=== PATIENT | female | born 1930 | race Caucasian/White ===

== ENCOUNTER 2016-10-16 10:16 | Day surgery (SDC) | payer MEDICARE, OTHER ==
[2016-10-11 10:07] LABS: HEMATOCRIT 44.2 % (36.0-47.0); HEMOGLOBIN 14.4 g/dL (12.0-15.5); MEAN CORPUSCULAR HEMOGLOBIN 28.2 pg (27.0-33.4); MEAN CORPUSCULAR HGB CONC 32.6 g/dL (32.0-36.0); MEAN CORPUSCULAR VOLUME 87 fl (80-97); RED BLOOD COUNT 5.12 10^6/uL (3.72-5.28); RED CELL DISTRIBUTION WIDTH 14.1 % (11.5-14.0); WHITE BLOOD COUNT 5.1 10^3/uL (4.0-10.5)
[2016-10-11 10:11] LABS: PROTHROMBIN TIME 12.4 SEC (11.4-15.4)
[2016-10-11 10:12] LABS: PARTIAL THROMBOPLASTIN TIME 29.5 SEC (23.5-35.8)
--- NOTE | 2016-10-12 06:04 | EKG REPORT ---
SEVERITY:- OTHERWISE NORMAL ECG - SINUS RHYTHM BORDERLINE RIGHT AXIS DEVIATION : Confirmed by: Kristina Ferreira MD 12-Oct-2016 06:03:39
[~2016-10-16 10:16] MED LIST: CEFAZOLIN 1 GM/D5W RTU 1 GM/50 ML RTUPB IV PRN; LACTATED RINGERS 1000 ML IV PRN; LIDOCAINE 0.5% INJ-PF (5 MG/ML) 50 ML SDV SUBCUT PRN; ONDANSETRON HCL INJ/PF 4 MG/2 ML SDV ONE; PHENYLEPHRINE HCL INJ/PF 10 MG/1 ML SDV ONE
[2016-10-16] MEDS ORDERED: SODIUM BICARBONATE 8.4% INJ 50 MEQ/50 ML DISP.SYRIN ONE (11:12)
[2016-10-16] MEDS ORDERED: LIDOCAINE 0.5%/EPINEPHRINE INJ 50 ML VIAL ONE (13:14)
[2016-10-16] MEDS ORDERED: POVIDONE-IODINE 5% OPH PREP SOLN 30 ML ONE (13:26)
[2016-10-16] MEDS ORDERED: FENTANYL CITRATE INJ/PF 100 MCG/2 ML AMPUL IV PRN ×2 (15:14)
[2016-10-16] MEDS ORDERED: DIPHENHYDRAMINE HCL 50 MG/ML VIAL IV PRN (15:14)
--- NOTE | 2016-10-16 15:59 | Operative Report ---
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 Patient was brought into the operating room and placed on the operating room table in a supine position. Patient was then prepped with a Betadine scrub and Betadine solution and draped in a sterile and aseptic manner. The area was then marked. 12 O'clock was marked towards the glabella 3 O'clock was marked towards left side of nose 6:00 was marked towards the tip of the nose 9:00 was marked towards the right side of the nose The area was then anesthetized with half percent lidocaine with epinephrine and bicarbonate for its anesthetic and hemostatic effects. The area was then excised and marked at 12:00. We had considered a primary closure but this would go against the natural relaxed skin tension lines. A primary closure would be too tight and would have increased chance of dehiscence. This will leave more of a scar so we decided to use a dorsal nasal advancement flap reconstruction which would camouflage the scar better and take tension off of the closure so that would be less chances of complications. Then went ahead and outlined the flap and anesthetized it. Then incised the flap and developed a flap maintaining the subdermal plexus. Then we undermined 360 to allow for plate like scarring and minimize trap door deformity. Throughout the case hemostasis was achieved with the bipolar. We then sutured the flap into its new position Using 5-0 Vicryl for the subcutaneous and deep dermis. Skin was closed with a interrupted sutures using 6-0 Prolene with knots being tied on the outside. We then applied tincture benzoin and Steri-Strips followed by a light pressure dressing. Patient was then reversed from anesthesia and taken to the [facility] for recovery. The patient tolerated well. There were no complications. Lesion size was approximately 1.1 cm x 1 cm please see pathology for actual size. Portions of this note may be dictated using [email or web address] voice recognition software. Occasional variations and spelling and vocabulary could be possible and are unintentional. Additionally, there is a chance that some errors may not be caught or corrected. Please notify the offer of any discrepancies noted or if any statements are unclear. Subjective: No complaints Objective: Vital signs stable afebrile No bleeding Dressing intact Assessment and plan: Doing well. Elevate the operative site. Resume medications. Take antibiotics for 1 day Follow-up Full instructions were given to the patient and family and they understand Portions of this note may be dictated using [email or web address] voice recognition software. Occasional variations and spelling and vocabulary could be possible and are unintentional. Additionally, there is a chance that some errors may not be caught or corrected. Please notify the offer of any discrepancies noted or if any statements are unclear.
--- NOTE | 2016-10-16 16:01 | PDOC DISCHARGE SUMMARY ---
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
[2016-10-16] MEDS ORDERED: PROPOFOL INJ 200 MG/20 ML VIAL IV ONE (16:15)
[2016-10-16 17:36] VITALS: BP 142/79
== END 2016-10-16 17:30 | disposition home or self-care (01) ==
LOC: OROUT 10:16
PROVIDERS: ATTEND Plastic Surgery
PROC: 0HB1XZZ Excision of Face Skin, External Approach (ICD-10-PCS; 2016-10-16)
PROC: 0HX1XZZ Transfer Face Skin, External Approach (ICD-10-PCS; principal; 2016-10-16 12:30)
DX: C44.321 Squamous cell carcinoma of skin of nose (principal); C44.311 Basal cell carcinoma of skin of nose; I10 Essential (primary) hypertension; M19.90 Unspecified osteoarthritis, unspecified site; I25.10 Atherosclerotic heart disease of native coronary artery without angina pectoris; I48.91 Unspecified atrial fibrillation; Z79.01 Long term (current) use of anticoagulants; Z79.82 Long term (current) use of aspirin; Z79.899 Other long term (current) drug therapy; Z86.73 Personal history of transient ischemic attack (TIA), and cerebral infarction without residual deficits; I25.2 Old myocardial infarction; Z98.61 Coronary angioplasty status
CPT/HCPCS: 93005; 36415 ×2; 84132; 85027; 85610; 85730; 88305 ×2; 88331 ×2; 93010; 14060; J0690; J3490 ×3; J2370; J2405; J2704; 300

== ENCOUNTER 2017-01-05 09:42 | Emergency (ER) | payer MEDICARE, OTHER ==
[2017-01-05] MEDS ORDERED: MECLIZINE HCL 25 MG TABLET PO ONE ×3 (09:58→13:00)
--- NOTE | 2017-01-05 09:59 | ER Document Report ---
ED Medical Screen (RME) - General Chief Complaint: Dizziness Stated Complaint: DIZZINESS Time Seen by Provider: 01/05/17 09:53 Mode of Arrival: Ambulatory Information source: Patient TRAVEL OUTSIDE OF THE [place] IN LAST 30 DAYS: No - HPI Patient complains to provider of: Dizziness Notes: 01/05/17 09:58 Patient is an 86-year-old female presenting to the emergency room today with the sensation of the room spinning causing her dizziness and nausea, she denies any head injury, no cough, cold or congestion, no sinus pressure or pain, no headache, no chest pain or shortness of breath, no vomiting, no fevers, no history of similar symptoms previously - Related Data Allergies/Adverse Reactions: No Known Allergies Allergy (Verified 01/05/17 09:44) Past Medical History - Past Medical History Cardiac Medical History: Reports: Hx Coronary Artery Disease, Hx Heart Attack - non stemi with x2 stent placements, Hx Hypercholesterolemia, Hx Hypertension Pulmonary Medical History: Denies: Hx Asthma, Hx Bronchitis, Hx COPD, Hx Pneumonia, Hx Tuberculosis Neurological Medical History: Denies: Hx Cerebrovascular Accident, Hx Seizures Renal/ Medical History: Denies: Hx Peritoneal Dialysis Malignancy Medical History: Reports: Hx Breast Cancer Musculoskeltal Medical History: Reports Hx Arthritis - OSTEOARTHRITIS Past Surgical History: Reports: Hx Mastectomy, Hx Orthopedic Surgery - Immunizations Hx Diphtheria, Pertussis, Tetanus Vaccination: Yes Physical Exam - Vital signs Vitals: Temp Pulse Resp BP Pulse Ox 97.7 F 73 16 164/85 H 99 01/05/17 09:45 01/05/17 09:45 01/05/17 09:45 01/05/17 09:45 01/05/17 09:45 Course - Vital Signs Vital signs: Temp Pulse Resp BP Pulse Ox 97.7 F 73 16 164/85 H 99 01/05/17 09:45 01/05/17 09:45 01/05/17 09:45 01/05/17 09:45 01/05/17 09:45
--- NOTE | 2017-01-05 11:03 | EKG REPORT ---
SEVERITY:- OTHERWISE NORMAL ECG - SINUS RHYTHM BORDERLINE RIGHT AXIS DEVIATION : Confirmed by: Nicholas Coleman MD 05-Jan-2017 11:02:19
[2017-01-05 11:09] LABS: ABSOLUTE EOSINOPHILS # (AUTO) 0.1 10^3/uL (0.0-0.6); ABSOLUTE LYMPHOCYTES (AUTO) 0.9 10^3/uL (0.5-4.7); ABSOLUTE MONOCYTES (AUTO) 0.5 10^3/uL (0.1-1.4); ABSOLUTE NEUT (AUTO) 2.7 10^3/uL (1.7-8.2); BASOPHILS % (AUTO) 0.4 % (0-2); EOSINOPHILS % (AUTO) 1.8 % (0-6); HEMATOCRIT 42.5 % (36.0-47.0); HEMOGLOBIN 14.4 g/dL (12.0-15.5); HGB HCT DIFFERENCE 0.7; LYMPHOCYTES % (AUTO) 22.2 % (13-45); MEAN CORPUSCULAR HEMOGLOBIN 28.8 pg (27.0-33.4); MEAN CORPUSCULAR HGB CONC 33.8 g/dL (32.0-36.0); MEAN CORPUSCULAR VOLUME 85 fl (80-97); MONOCYTES % (AUTO) 12.7 % (3-13); RED BLOOD COUNT 4.99 10^6/uL (3.72-5.28); RED CELL DISTRIBUTION WIDTH 13.9 % (11.5-14.0); SEGMENTED NEUTROPHILS % (AUTO) 62.9 % (42-78); WHITE BLOOD COUNT 4.2 10^3/uL (4.0-10.5)
[2017-01-05 11:35] LABS: ALANINE AMINOTRANSFERASE 24 U/L (9-52); ALBUMIN 4.4 g/dL (3.5-5.0); ALKALINE PHOSPHATASE 59 U/L (38-126); ANION GAP 12 (5-19); ASPARTATE AMINO TRANSFERASE 18 U/L (14-36); BILIRUBIN,DIRECT 0.4 mg/dL (0.0-0.4); BLOOD UREA NITROGEN 24 mg/dL (7-20); CALCIUM 10.2 mg/dL (8.4-10.2); CARBON DIOXIDE 28 mmol/L (22-30); CHLORIDE 104 mmol/L (98-107); CREATINE KINASE 32 U/L (30-135); CREATININE RESULT 0.61 mg/dL (0.52-1.25); GLUCOSE 101 mg/dL (75-110); POTASSIUM 3.9 mmol/L (3.6-5.0); SODIUM 143.6 mmol/L (137-145); TOTAL PROTEIN 7.3 g/dL (6.3-8.2)
[2017-01-05 11:44] LABS: APPEARANCE,URINE CLEAR; BILIRUBIN,URINE NEGATIVE (NEGATIVE); GLUCOSE, URINE NEGATIVE (NEGATIVE); KETONES,URINE NEGATIVE (NEGATIVE); LEUKOCYTE ESTERASE,URINE TRACE (NEGATIVE); NITRITE,URINE NEGATIVE (NEGATIVE); PROTEIN,URINE NEGATIVE (NEGATIVE); URINE SPECIFIC GRAVITY 1.006; UROBILINOGEN,URINE NEGATIVE mg/dL (<2.0)
[2017-01-05 11:47] LABS: CREATINE KINASE MB 0.85 ng/mL (<4.55); TROPONIN I < 0.012 ng/mL
--- NOTE | 2017-01-05 12:25 | ER Document Report ---
ED Dizziness/Weakness - General Mode of Arrival: Ambulatory Information source: Patient TRAVEL OUTSIDE OF THE [place] IN LAST 30 DAYS: No <ANGIE NUÑEZ - Last Filed: 01/05/17 12:41> <ROMAINE GAITAN - Last Filed: 01/05/17 14:45> - General Chief Complaint: Dizziness Stated Complaint: DIZZINESS Time Seen by Provider: 01/05/17 09:53 Notes: Patient is an 86-year-old female who presents to the emergency department today with complaints of dizziness. Patient states her dizziness is worse today but it has been going on for the last few days. Patient states until today, her dizziness was elicited with rapid head movement. Patient states today she was dizzy when simply lying in bed. Patient states her dizziness improved with Antivert which she received in triage. (ANGIE NUÑEZ) - Related Data Allergies/Adverse Reactions: No Known Allergies Allergy (Verified 01/05/17 09:44) Home Medications: Current Home Medications Anastrozole 1 mg PO DAILY 01/05/17 [History] Aspirin [Aspirin 325 mg Tablet] 325 mg PO DAILY 01/05/17 [History] Past Medical History - General Information source: Patient - Social History Smoking Status: Never Smoker Cigarette use (# per day): No Chew tobacco use (# tins/day): No Frequency of alcohol use: None Drug Abuse: None Lives with: Family Family History: Reviewed & Not Pertinent, Hypertension - Past Medical History Cardiac Medical History: Reports: Hx Coronary Artery Disease, Hx Heart Attack - non stemi with x2 stent placements, Hx Hypercholesterolemia, Hx Hypertension Malignancy Medical History: Reports: Hx Breast Cancer Musculoskeltal Medical History: Reports Hx Arthritis - OSTEOARTHRITIS Past Surgical History: Reports: Hx Mastectomy, Hx Orthopedic Surgery - Immunizations Hx Diphtheria, Pertussis, Tetanus Vaccination: Yes Hx Pneumococcal Vaccination: 03/25/11 <ANGIE NUÑEZ - Last Filed: 01/05/17 12:41> Review of Systems - Review of Systems Constitutional: No symptoms reported EENT: No symptoms reported Cardiovascular: See HPI, Dizziness Respiratory: No symptoms reported Gastrointestinal: No symptoms reported Genitourinary: No symptoms reported Female Genitourinary: No symptoms reported Musculoskeletal: No symptoms reported Skin: No symptoms reported Hematologic/Lymphatic: No symptoms reported Neurological/Psychological: No symptoms reported -: Yes All other systems reviewed and negative <ANGIE NUÑEZ - Last Filed: 01/05/17 12:41> - Vital signs Vitals: Temp Pulse Resp BP Pulse Ox 97.7 F 73 16 164/85 H 99 01/05/17 09:45 01/05/17 09:45 01/05/17 09:45 01/05/17 09:45 01/05/17 09:45 - Notes Notes: Physical Exam: General: Alert, appears well. HEENT: Normocephalic. Atraumatic. PERRL. Extraocular movements intact. Oropharynx clear. Left sided carotid bruit which family reports is . Neck: Supple. Non-tender. Respiratory: No respiratory distress. Clear and equal breath sounds bilaterally. Cardiovascular: Regular rate and rhythm. Abdominal: Normal Inspection. Non-tender. No distension. Normal Bowel Sounds. Back: Non-tender. No deformity or step off. Extremities: Moves all four extremities. Upper extremities: Normal inspection. Normal ROM. Lower extremities: Normal inspection. No edema. Normal ROM. Neurological: Normal cognition. AAOx4. Normal speech. Psychological: Normal affect. Normal Mood. Skin: Warm. Dry. Normal color. Diffuse cutaneous neurofibromas. (ANGIE NUÑEZ) Course - Laboratory Result Diagrams: 01/05/17 10:45 01/05/17 10:45 <ANGIE NUÑEZ - Last Filed: 01/05/17 12:41> - Laboratory Result Diagrams: 01/05/17 10:45 01/05/17 10:45 <ROMAINE GAITAN - Last Filed: 01/05/17 14:45> - Re-evaluation Re-evalutation: 01/05/17 14:34 At this time after the second dose of Antivert, patient states her symptoms are cleared up. She is able to look up and down and side to side rapidly without any symptoms at this time. (ROMAINE GAITAN) - Vital Signs Vital signs: Temp Pulse Resp BP Pulse Ox 98.1 F 98 16 142/71 H 97 01/05/17 14:01 01/05/17 13:05 01/05/17 14:01 01/05/17 14:01 01/05/17 14:01 - Laboratory Laboratory results interpreted by me: 01/05/17 01/05/17 10:45 11:25 BUN 24 H Urine Blood SMALL H Ur Leukocyte Esterase TRACE H Discharge <ANGIE NUÑEZ - Last Filed: 01/05/17 12:41> <ROMAINE GAITAN - Last Filed: 01/05/17 14:45> - Discharge Clinical Impression: Vertigo Condition: Stable Disposition: HOME, SELF-CARE Additional Instructions: Vertigo: You have experienced an episode of vertigo -- a whirling dizziness which may be accompanied by nausea and vomiting or staggering. Vertigo is often caused by an irritation of the inner ear, in which case it is called labyrinthitis. It can also be a symptom of a degenerating inner ear, nerve damage, or brain injury. Your physician has evaluated you to determine whether any further testing is necessary. Vertigo is often treated with dramamine or meclizine. These medications are helpful, but stronger medication may be needed if you are vomiting. Rest in bed. You should not drive or operate machinery until completely better. It may take one to three weeks for recovery. If there are new symptoms, such as decreased hearing or vision, severe headache, weakness or faintness, or confusion, call the physician. //////////////////////////////////////////////////////////////////////////////// ///////////////////// Take medications as prescribed for the vertigo symptoms. Take fall precautions. Follow-up with your doctor if not improving. RETURN TO THE EMERGENCY ROOM IF ANY NEW OR WORSENING SYMPTOMS. Prescriptions: Meclizine HCl [Antivert 25 mg Tablet] 25 mg PO TID PRN #30 tablet PRN Reason: Referrals: DANIELLE MCHUGH MD [Primary Care Provider] - Follow up as needed Anshulibe Attestation: 01/05/17 14:43 I personally performed the services described in the documentation, reviewed and edited the documentation which was dictated to the scribe in my presence, and it accurately records my words and actions. (ROMAINE GAITAN) Scribe Documentation - Scribe Written by Anshulibe:: Shawna Kelly, 01/05/2017 1247 acting as scribe for :: Oxana <ANGIE NUÑEZ - Last Filed: 01/05/17 12:41>
[2017-01-05 14:37] VITALS: BP 142/71
== END 2017-01-05 14:50 | disposition home or self-care (01) ==
LOC: ER 09:42
DX: R42 Dizziness and giddiness (principal); I25.10 Atherosclerotic heart disease of native coronary artery without angina pectoris; I25.2 Old myocardial infarction; I10 Essential (primary) hypertension; Q85.00 Neurofibromatosis, unspecified; Z95.5 Presence of coronary angioplasty implant and graft; Z85.3 Personal history of malignant neoplasm of breast
CPT/HCPCS: 93005; 99284; 36415; 82553; 82550; 85025; 80053; 81001; 84484; 93010; A9270

== ENCOUNTER → 2017-02-21 | Outpatient (CLI) | payer MEDICARE, OTHER ==
--- NOTE | 2017-02-21 11:29 | RADIOLOGY REPORT (SQ) ---
EXAM DESCRIPTION: CT ABD/PELVIS WITH IV ORAL COMPLETED DATE/TIME: 02/21/2017 9:03 am REASON FOR STUDY: EPIGASTRIC ABDOMINAL PAIN R10.13 EPIGASTRIC PAIN Q85.00 NEUROFIBROMATOSIS, UNSPE CIFIED COMPARISON: None. TECHNIQUE: CT scan of the abdomen and pelvis performed using helical scanning technique with dynamic intravenous contrast injection. Patient drank oral contrast. Images reviewed with lung, soft tissue , and bone windows. Reconstructed coronal and sagittal MPR images reviewed. Delayed images for evalua tion of the urinary system also acquired. All images stored on PACS. All CT scanners at this facility use dose modulation, iterative reconstruction, and/or weight based d osing when appropriate to reduce radiation dose to as low as reasonably achievable (ALARA). [facility]: Dose Right [facility]: CareDose [facility]: Dose Right [facility]: Teradose 4D [facility]: [email or web address] CONTRAST TYPE AND DOSE: contrast/concentration: Isovue 370.00 mg/ml; Total Contrast Delivered: 52.0 ml; Total Saline Delivered: 65.0 ml RENAL FUNCTION: Creatinine 0.7 RADIATION DOSE: CT Rad equipment meets quality standard of care and radiation dose reduction techniq ues were employed. CTDIvol: 2.6 - 3.1 mGy. DLP: 259 mGy-cm.. LIMITATIONS: None. FINDINGS: LOWER CHEST: Unremarkable LIVER: 8 mm cyst left lobe liver axial image 20. No masses. Normal portal vein and splenic vein enh ancement. No biliary ductal dilatation. No hepatomegaly. SPLEEN: Normal size. No focal lesions. 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 PANCREAS: No masses. No significant calcifications. No adjacent inflammation or peripancreatic fluid collections. Pancreatic duct not dilated. GALLBLADDER: Gallstones. No inflammatory changes to suggest cholecystitis. ADRENAL GLANDS: No significant masses or asymmetry. RIGHT KIDNEY AND URETER: No solid masses. No significant calcifications. No hydronephrosis or hyd roureter. LEFT KIDNEY AND URETER: No solid masses. No significant calcifications. No hydronephrosis or hydr oureter. AORTA AND VESSELS: No aneurysm. No dissection. Diffuse heavy atherosclerotic arterial vascular calci fications. Moderate stenosis bilateral common iliac artery, with right common iliac artery stent. . RETROPERITONEUM: No retroperitoneal adenopathy, hemorrhage or masses. BOWEL AND PERITONEAL CAVITY: Patient drank oral contrast. No CT evidence of bowel obstruction. No C T findings worrisome for diverticulitis. No free intraperitoneal air or fluid. APPENDIX: Post appendectomy PELVIS: No mass. No free fluid. Normal bladder. Post hysterectomy. ABDOMINAL WALL: No masses. No hernias. Multiple cutaneous nodules, question neurofibromatosis BONES: Old healed left intertrochanteric fracture with hardware. OTHER: No other significant finding. IMPRESSION: No CT evidence of bowel obstruction, urinary stones, urinary outflow obstruction. Calcified gallstones without CT signs of acute cholecystitis. TECHNICAL DOCUMENTATION: JOB ID: [id number] Quality ID # [id number]: Final reports with documentation of one or more dose reduction techniques (e.g., Au tomated exposure control, adjustment of the mA and/or kV according to patient size, use of iterative reconstruction technique) 2010 [employer]- All Rights Reserved
== END ==
LOC: RAD 08:20
PROVIDERS: ATTEND Family Medicine
DX: R10.13 Epigastric pain (principal)
CPT/HCPCS: 74177

== ENCOUNTER → 2017-09-10 | Outpatient (CLI) | payer MEDICARE, OTHER ==
--- NOTE | 2017-09-10 15:08 | RADIOLOGY REPORT (SQ) ---
EXAM DESCRIPTION: CAROTID DOPPLER COMPLETED DATE/TIME: 09/10/2017 1:14 pm REASON FOR STUDY: SOB R06.02 SHORTNESS OF BREATH R42 DIZZINESS AND GIDDINESS COMPARISON: 07/20/2013 TECHNIQUE: Grayscale ultrasound, Doppler velocity and spectra, and color Doppler images acquired of the extra-cranial carotid and vertebral arteries. Images stored on PACS. LIMITATIONS: None. FINDINGS: RIGHT CAROTID CCA Velocities: Within normal limits. ICA Velocities Peak systolic 0.70 m/s. End diastolic 0.09 m/s. Proximal ICA/CCA peak systolic ratio 1.22 Moderate plaque involving the bifurcation LEFT CAROTID CCA Velocities: Within normal limits. ICA Velocities Peak systolic 1.25 m/s. End diastolic 0.13 m/s. Proximal ICA/CCA peak systolic ratio 2.39. Plaque involving the bifurcation VERTEBRAL ARTERIES: Antegrade flow. Normal waveforms. SUBCLAVIAN ARTERIES: No finding. OTHER: No other significant finding. IMPRESSION: Extensive plaque involving both carotid bifurcations. Degree of stenosis of the right i nternal carotid artery less than 50%. Degree of stenosis left internal carotid 50 to 69%. Near 50% by extrapolation. COMMENT: Quality ID #[id number]: Velocity criteria are extrapolated from the diameter data as defined by t sandeep Society of Radiologists in Ultrasound Consensus Conference. Radiology 2003: 229; 340-346. TECHNICAL DOCUMENTATION: JOB ID: [id number] [employer]- All Rights Reserved Reading location - IP/workstation name: [email or web address]
--- NOTE | 2017-09-13 19:07 | XCELERA REPORT ---
[address] [address] Transthoracic Echocardiogram Report Name: LOUISE ZHOU Age: 87 yrs Gender: Female : 1930 Patient Status: Outpatient Patient Location: Study Date: 09/10/2017 10:37 AM Height: 62 in Weight: 102 lb BSA: 1.4 m2 Procedure: A two-dimensional transthoracic echocardiogram with color flow and Doppler was performed. The study was technically difficult with many images being suboptimal in quality. Reason For Study: SOB History: Shortness of breath. Ordering Physician: KRISTINA BUSBY Performed By: Jason Strickland Interpretation Summary The left ventricle is normal in size. There is normal left ventricular wall thickness. LV EF is > than 65% Left ventricular systolic function is normal. Doppler measurements suggest impaired left ventricular relaxation, which is associated with grade I/IV or mild diastolic dysfunction The left ventricular wall motion is normal. There is no thrombus. The right ventricle is grossly normal size. The right atrium is normal. The left atrial size is normal. The interatrial septum is intact with no evidence for an atrial septal defect. There is mild mitral annular calcification. There is no evidence of mitral valve prolapse. There is no vegetation seen on the mitral valve. There is no mitral valve stenosis. There is a mild amount of mitral regurgitation There is no aortic valve stenosis There is no LVOT obstruction. There is a trace amount of aortic regurgitation There is no tricuspid stenosis. There is a mild amount of tricuspid regurgitation Early mild pulmonary hypertension.RVSP is 31 to 35 mm of Hg , with RA men of 5 to 10 Pulmonic Valve not visualised. The inferior vena cava appeared normal and decreased > 50% with respiration (RAP 5-10 mmHg) There is no pericardial effusion. MMode/2D Measurements & Calculations RVDd: 2.4 cm LVIDd: 4.6 cm FS: 37.2 % Ao root diam: 3.0 cm IVSd: 0.79 cm LVIDs: 2.9 cm EDV(Teich): 95.9 ml LVPWd: 0.73 cmESV(Teich): 31.4 ml Ao root area: 7.0 cm2 EF(Teich): 67.3 % LA dimension: 2.9 cm LVOT diam: 2.0 cm LVOT area: 3.2 cm2 Doppler Measurements & Calculations MV E max jessie: MV P1/2t max jessie: Ao V2 max: LV V1 max P.9 cm/sec 108.0 cm/sec 84.7 cm/sec 2.2 mmHg MV A max jessie: MV P1/2t: 56.6 msec Ao max PG: LV V1 max: 106.1 cm/sec MVA(P1/2t): 3.9 cm2 2.9 mmHg 73.7 cm/sec MV E/A: 0.81 MV dec slope: BRIANA(V,D): 558.5 cm/sec2 2.8 cm2 MV dec time: 0.24 sec TV V2 max: 253.1 cm/sec TV max P.6 mmHg Left Ventricle The left ventricle is normal in size. There is normal left ventricular wall thickness. LV EF is > than 65%. Left ventricular systolic function is normal. Doppler measurements suggest impaired left ventricular relaxation, which is associated with grade I/IV or mild diastolic dysfunction. The left ventricular wall motion is normal. There is no thrombus. There is no ventricular septal defect visualized. Right Ventricle The right ventricle is grossly normal size. Atria The right atrium is normal. The left atrial size is normal. The interatrial septum is intact with no evidence for an atrial septal defect. Mitral Valve There is mild mitral annular calcification. There is no evidence of mitral valve prolapse. There is no vegetation seen on the mitral valve. There is no mitral valve stenosis. There is a mild amount of mitral regurgitation. Aortic Valve There is no aortic valvular vegetation. There is no aortic valve stenosis. There is no LVOT obstruction. There is a trace amount of aortic regurgitation. Tricuspid Valve There is no tricuspid stenosis. There is a mild amount of tricuspid regurgitation. Early mild pulmonary hypertension.RVSP is 31 to 35 mm of Hg , with RA men of 5 to 10. Pulmonic Valve Pulmonic Valve not visualised. Great Vessels The aortic root is not well visualized but is probably normal size. The inferior vena cava appeared normal and decreased > 50% with respiration (RAP 5-10 mmHg). Effusions There is no pericardial effusion. : KRISTINA BUSBY > Kristina Busby
== END ==
LOC: SP 09:52
PROVIDERS: ATTEND Specialist
DX: R42 Dizziness and giddiness (principal); R06.02 Shortness of breath
CPT/HCPCS: 93306; 93880

== ENCOUNTER 2018-03-04 18:17 | Inpatient (IN) | payer MEDICARE, OTHER ==
--- NOTE | 2018-03-04 19:16 | ER Document Report ---
ED Medical Screen (RME) - General Chief Complaint: Abdominal Pain Stated Complaint: ABDOMINAL PAIN Time Seen by Provider: 03/04/18 18:59 TRAVEL OUTSIDE OF THE [place] IN LAST 30 DAYS: No - HPI Notes: 03/04/18 19:14 Patient is a 87-year-old female that presents to the emergency department for chief complaint of right upper quadrant abdominal pain. Patient's son is power of senior attorney and at bedside. Patient complains of right upper quadrant abdominal pain that is constant for the last 4 days. She has associated nausea with no vomiting. She denies any fevers, chills, diarrhea and dysuria ROS: GENERAL: Denies fever of chills CV: Denies chest pain PHYSICAL EXAMINATION: GENERAL: Well-appearing, well-nourished and in no acute distress. HEAD: Atraumatic, normocephalic. EYES: Pupils equal round extraocular movements intact, conjunctiva are normal. ENT: Nares patent NECK: Normal range of motion LUNGS: No respiratory distress Musculoskeletal: Normal range of motion NEUROLOGICAL: Normal speech, normal gait. PSYCH: Normal mood, normal affect. MDM: Patient seen and examined for rapid initial assessment. Vital signs reviewed. A comprehensive ED assessment and evaluation of the patient, analysis of test results and completion of the medical decision making process will be conducted by additional ED providers. - Related Data Allergies/Adverse Reactions: No Known Allergies Allergy (Verified 01/05/17 09:44) Past Medical History - Past Medical History Cardiac Medical History: Reports: Hx Coronary Artery Disease, Hx Heart Attack - non stemi with x2 stent placements, Hx Hypercholesterolemia, Hx Hypertension Pulmonary Medical History: Denies: Hx Asthma, Hx Bronchitis, Hx COPD, Hx Pneumonia, Hx Tuberculosis Neurological Medical History: Denies: Hx Cerebrovascular Accident, Hx Seizures Renal/ Medical History: Denies: Hx Peritoneal Dialysis Malignancy Medical History: Reports: Hx Breast Cancer Musculoskeltal Medical History: Reports Hx Arthritis - OSTEOARTHRITIS Past Surgical History: Reports: Hx Mastectomy, Hx Orthopedic Surgery - Immunizations Hx Diphtheria, Pertussis, Tetanus Vaccination: Yes Physical Exam - Vital signs Vitals: Temp Pulse Resp BP Pulse Ox 98.4 F 102 H 16 140/71 H 92 03/04/18 18:24 03/04/18 18:24 03/04/18 18:24 03/04/18 18:24 03/04/18 18:24 Course - Vital Signs Vital signs: Temp Pulse Resp BP Pulse Ox 98.4 F 102 H 16 140/71 H 92 03/04/18 18:24 03/04/18 18:24 03/04/18 18:24 03/04/18 18:24 03/04/18 18:24 Doctor's Discharge - Discharge Referrals: MANUEL BUSBY MD [Primary Care Provider] - Follow up as needed
[2018-03-04] MEDS ORDERED: MORPHINE SULFATE 10 MG/ML INJ IV ONE ×2 (19:33→21:19)
[2018-03-04] MEDS ORDERED: ONDANSETRON HCL INJ/PF 4 MG/2 ML SDV IV ONE (19:33)
[2018-03-04] MEDS ORDERED: NORMAL SALINE 1000 ML 1,000 ML IV ONE (19:34)
[2018-03-04 20:35] LABS: ALANINE AMINOTRANSFERASE 22 U/L (9-52); ALBUMIN 4.1 g/dL (3.5-5.0); ALKALINE PHOSPHATASE 88 U/L (38-126); ANION GAP 17 (5-19); ASPARTATE AMINO TRANSFERASE 19 U/L (14-36); BILIRUBIN,DIRECT 0.5 mg/dL (0.0-0.4); BILIRUBIN,TOTAL 0.9 mg/dL (0.2-1.3); BLOOD UREA NITROGEN 32 mg/dL (7-20); CALCIUM 10.2 mg/dL (8.4-10.2); CARBON DIOXIDE 21 mmol/L (22-30); CHLORIDE 104 mmol/L (98-107); GLUCOSE 120 mg/dL (75-110); LIPASE 67.3 U/L (23-300); POTASSIUM 3.6 mmol/L (3.6-5.0); SODIUM 141.7 mmol/L (137-145); TOTAL PROTEIN 7.3 g/dL (6.3-8.2)
[2018-03-04 20:37] LABS: ABSOLUTE EOSINOPHILS # (AUTO) 0.1 10^3/uL (0.0-0.6); ABSOLUTE LYMPHOCYTES (AUTO) 0.6 10^3/uL (0.5-4.7); ABSOLUTE MONOCYTES (AUTO) 0.7 10^3/uL (0.1-1.4); ABSOLUTE NEUT (AUTO) 7.6 10^3/uL (1.7-8.2); BASOPHILS % (AUTO) 0.2 % (0-2); EOSINOPHILS % (AUTO) 0.6 % (0-6); HEMATOCRIT 40.2 % (36.0-47.0); HEMOGLOBIN 13.7 g/dL (12.0-15.5); LYMPHOCYTES % (AUTO) 6.9 % (13-45); MEAN CORPUSCULAR HEMOGLOBIN 29.3 pg (27.0-33.4); MEAN CORPUSCULAR VOLUME 86 fl (80-97); PLATELET COUNT 192 10^3/uL (150-450); RED BLOOD COUNT 4.67 10^6/uL (3.72-5.28); RED CELL DISTRIBUTION WIDTH 14.5 % (11.5-14.0); SEGMENTED NEUTROPHILS % (AUTO) 84.3 % (42-78); TOTAL CELLS COUNTED % (AUTO) 100 %; WHITE BLOOD COUNT 9.1 10^3/uL (4.0-10.5)
--- NOTE | 2018-03-04 20:37 | RADIOLOGY REPORT (SQ) ---
EXAM DESCRIPTION: U/S ABDOMEN LIMITED W/O DOP COMPLETED DATE/TIME: 03/04/2018 8:28 pm REASON FOR STUDY: RUQ pain COMPARISON: None. TECHNIQUE: Dynamic and static grayscale images acquired of the abdomen and recorded on PACS. Additio nal selected color Doppler and spectral images recorded. LIMITATIONS: Study limited by patient motion. FINDINGS: PANCREAS: Poorly visualized due to patient motion. LIVER: Normal size Mild fatty infiltration. No focal masses. LIVER VASCULATURE: Normal directional flow of the main portal vein and hepatic veins. GALLBLADDER: Gallstones and sludge. No pericholecystic fluid. No wall thickening. ULTRASOUND-DETECTED DURBIN'S SIGN: Negative. INTRAHEPATIC DUCTS AND COMMON DUCT: CBD and intrahepatic ducts normal caliber. No filling defects. INFERIOR VENA CAVA: Normal flow. AORTA: No aneurysm. RIGHT KIDNEY: Normal size. Normal echogenicity. No solid or suspicious masses. No hydronephros is. No calcifications. PERITONEAL AND RIGHT PLEURAL SPACE: No ascites or effusions. OTHER: No other significant findings. IMPRESSION: GALLSTONES AND SLUDGE. MILD FATTY INFILTRATION OF THE LIVER. TECHNICAL DOCUMENTATION: JOB ID: [id number]- All Rights Reserved Reading location - IP/workstation name: [email or web address]
--- NOTE | 2018-03-04 21:21 | ER Document Report ---
ED GI/ - General Chief Complaint: Abdominal Pain Stated Complaint: ABDOMINAL PAIN Time Seen by Provider: 03/04/18 18:59 Notes: 87-year-old female patient to the emergency department with chief complaint of right upper quadrant pain. Patient rates the pain is been on and off for the last several days. Worse today. Located in the right upper quadrant. Radiates to the right lower chest. Denies any shortness of breath. Some nausea but no vomiting. Followed by Dr. Baltazar. TRAVEL OUTSIDE OF THE [place] IN LAST 30 DAYS: No - HPI Patient complains to provider of: Abdominal pain Timing/Duration: Gradual, Worse Quality of pain: Sharp, Stabbing Severity at maximum: Severe Severity in ED: Severe Pain Level: 5 - Related Data Allergies/Adverse Reactions: No Known Allergies Allergy (Verified 01/05/17 09:44) Past Medical History - General Information source: Patient - Social History Smoking Status: Never Smoker Frequency of alcohol use: None Drug Abuse: None Lives with: Family Family History: Reviewed & Not Pertinent, Hypertension Patient has suicidal ideation: No Patient has homicidal ideation: No - Past Medical History Cardiac Medical History: Reports: Hx Coronary Artery Disease, Hx Heart Attack - non stemi with x2 stent placements, Hx Hypercholesterolemia, Hx Hypertension Pulmonary Medical History: Denies: Hx Asthma, Hx Bronchitis, Hx COPD, Hx Pneumonia, Hx Tuberculosis Neurological Medical History: Denies: Hx Cerebrovascular Accident, Hx Seizures Renal/ Medical History: Denies: Hx Peritoneal Dialysis Malignancy Medical History: Reports: Hx Breast Cancer Musculoskeletal Medical History: Reports Hx Arthritis - OSTEOARTHRITIS Past Surgical History: Reports: Hx Mastectomy, Hx Orthopedic Surgery - Immunizations Hx Diphtheria, Pertussis, Tetanus Vaccination: Yes Hx Pneumococcal Vaccination: 03/25/11 Review of Systems - Review of Systems Notes: Constitutional: denies: Chills, Diaphoresis, Fever, Malaise, Weakness EENT: denies: Eye discharge, Blurred vision, Tearing, Double vision, Nose congestion, Nose discharge, Throat swelling, Mouth pain Cardiovascular: denies: Palpitations, Heart racing, Orthopnea, Dyspnea, Chest pain Respiratory: denies: Cough, Hurts to breathe, Wheezing, Shortness of breath Gastrointestinal: Right upper quadrant pain, mild nausea, radiates around to the right posterior chest wall. Genitourinary: denies: Burning, Dysuria, Discharge, Frequency, Flank pain, Hematuria Musculoskeletal: denies: Joint pain, Joint swelling, Muscle pain, Muscle stiffness, back pain Hematologic/Lymphatic: denies: Anemia, Easy bleeding, Easy bruising, Blood clots Neurological/Psychological: denies: Confusion, Dementia, Depression, Loss of consciousness Skin: No lesions, no masses, no skin breakdown, no abscesses Physical Exam - Vital signs Vitals: Temp Pulse Resp BP Pulse Ox 98.4 F 102 H 16 140/71 H 92 03/04/18 18:24 03/04/18 18:24 03/04/18 18:24 03/04/18 18:24 03/04/18 18:24 Interpretation: Tachycardic Notes: Uncomfortable appearing - General General appearance: Appears well, Alert Notes: Uncomfortable appearing - HEENT Head: Normocephalic, Atraumatic Eyes: Normal Pupils: PERRL - Respiratory Respiratory status: No respiratory distress Chest status: Nontender Breath sounds: Normal Chest palpation: Normal - Cardiovascular Rhythm: Regular Heart sounds: Normal auscultation Murmur: No - Abdominal Inspection: Normal Distension: No distension Bowel sounds: Normal Tenderness: Tender, Bailey's sign Organomegaly: No organomegaly - Back Back: Normal, Nontender - Extremities General upper extremity: Normal inspection, Nontender, Normal color, Normal ROM , Normal temperature General lower extremity: Normal inspection, Nontender, Normal color, Normal ROM , Normal temperature, Normal weight bearing. No: Jaylon's sign - Neurological Neuro grossly intact: Yes Cognition: Normal Orientation: AAOx4 Hudson Coma Scale Eye Opening: Spontaneous Hudson Coma Scale Verbal: Oriented Hudson Coma Scale Motor: Obeys Commands Linda Coma Scale Total: 15 Speech: Normal Motor strength normal: LUE, RUE, LLE, RLE Sensory: Normal - Psychological Associated symptoms: Normal affect, Normal mood - Skin Skin Temperature: Warm Skin Moisture: Dry Skin Color: Normal, Other - Patient has diffuse neurofibromatosis involvement of the skin. Course - Re-evaluation Re-evalutation: 03/04/18 21:24 Abdomen Ultrasound 03/04/18 19:12 IMPRESSION: GALLSTONES AND SLUDGE. MILD FATTY INFILTRATION OF THE LIVER. Laboratory 03/04/18 03/04/18 03/04/18 20:00 20:00 20:00 WBC 9.1 RBC 4.67 Hgb 13.7 Hct 40.2 MCV 86 MCH 29.3 MCHC 34.0 RDW 14.5 H Plt Count 192 Seg Neutrophils % 84.3 H Lymphocytes % 6.9 L Monocytes % 8.0 Eosinophils % 0.6 Basophils % 0.2 Absolute Neutrophils 7.6 Absolute Lymphocytes 0.6 Absolute Monocytes 0.7 Absolute Eosinophils 0.1 Absolute Basophils 0.0 Sodium 141.7 Potassium 3.6 Chloride 104 Carbon Dioxide 21 L Anion Gap 17 BUN 32 H Creatinine 0.98 Est GFR ( Amer) > 60 Est GFR (Non-Af Amer) 54 L Glucose 120 H Calcium 10.2 Total Bilirubin 0.9 Direct Bilirubin 0.5 H Neonat Total Bilirubin Not Reportable Neonat Direct Bilirubin Not Reportable Neonat Indirect Bili Not Reportable AST 19 ALT 22 Alkaline Phosphatase 88 Troponin I < 0.012 Total Protein 7.3 Albumin 4.1 Lipase 67.3 Concern exists for early lithiasis. Will give her some more pain medicine and consult with surgery. Unlikely patient in this amount of pain is going to be able to go home tonight and less pain remarkably improved. Consulted with Dr. Washington who is seen the patient at this time. 03/04/18 21:29 Dr. Washington has seen the patient. Will try to admit to medicine at this time and will likely need her gallbladder out. - Vital Signs Vital signs: Temp Pulse Resp BP Pulse Ox 98.4 F 102 H 16 140/71 H 92 03/04/18 18:24 03/04/18 18:24 03/04/18 18:24 03/04/18 18:24 03/04/18 18:24 - Laboratory Result Diagrams: 03/04/18 20:00 03/04/18 20:00 Laboratory results interpreted by me: 03/04/18 03/04/18 20:00 20:00 RDW 14.5 H Seg Neutrophils % 84.3 H Lymphocytes % 6.9 L Carbon Dioxide 21 L BUN 32 H Est GFR (Non-Af Amer) 54 L Glucose 120 H Direct Bilirubin 0.5 H Discharge - Discharge Clinical Impression: Cholelithiasis and acute cholecystitis without obstruction Condition: Good Disposition: ADMITTED INPATIENT Admitting Provider: Baltazar Unit Admitted: [facility]
[2018-03-04] MEDS ORDERED: DEXTROSE 5%-1/2 NORMAL SALINE 1,000 ML IV ONE (21:30)
--- NOTE | 2018-03-04 21:40 | PDOC CONSULTATION ---
Consultation Consult Date: 03/04/18 Consult reason:: gallstones with abdominal pains History of Present Illness Admission Date/PCP: DANIELLE MCHUGH MD Patient complains of: abdominal pains History of Present Illness: LOUISE ZHOU is a 87 year old female who suddenly c/o upper abdominal pains started this am and getting worse. Has nausea and felt cold. Denies fever/ diarrhea/constipation. Denies previous fatty food intolerance. Has extensive fibromatosis asymptomatic. Past Medical History Cardiac Medical History: Reports: Coronary Artery Disease, Myocardial Infarction - non stemi with x2 stent placements, Hyperlipidema, Hypertension Pulmonary Medical History: Denies: Asthma, Bronchitis, Chronic Obstructive Pulmonary Disease (COPD), Pneumonia, Tuberculosis Neurological Medical History: Denies: Seizures Malignancy Medical History: Reports: Breast Cancer Musculoskeltal Medical History: Reports: Arthritis - OSTEOARTHRITIS Hematology: Denies: Anemia Past Surgical History Past Surgical History: Reports: Mastectomy, Orthopedic Surgery Social History Lives with: Family Smoking Status: Never Smoker Frequency of Alcohol Use: Rare Hx Recreational Drug Use: No Hx Prescription Drug Abuse: No Family History Family History: Reviewed & Not Pertinent, Hypertension Parental Family History Reviewed: Yes Children Family History Reviewed: Yes - son with Diabetes Sibling(s) Family History Reviewed.: No Medication/Allergy Home Medications: Anastrozole [Arimidex 1 mg Tablet] 1 mg PO DAILY 07/18/13 Atorvastatin Calcium [Lipitor 80 mg Tablet] 80 mg PO DAILY 07/18/13 Cholecalciferol (Vitamin D3) [Vitamin D] 2,000 units PO DAILY 07/18/13 Metoprolol Tartrate [Lopressor 25 mg Tablet] 25 mg PO BID 07/18/13 Zolpidem Tartrate [Ambien 10 mg Tablet] 10 mg PO HSP PRN 07/18/13 Losartan Potassium [Cozaar 50 mg Tablet] 50 mg PO Q12 #60 tablet 07/22/13 Amlodipine Besylate 10 mg PO DAILY 10/09/16 Hydrochlorothiazide 12.5 mg PO DAILY 10/09/16 Anastrozole 1 mg PO DAILY 01/05/17 Aspirin [Aspirin 325 mg Tablet] 325 mg PO DAILY 01/05/17 Meclizine HCl [Antivert 25 mg Tablet] 25 mg PO TID PRN #30 tablet 01/05/17 Allergies/Adverse Reactions: No Known Allergies Allergy (Verified 01/05/17 09:44) Review of Systems Constitutional: PRESENT: as per HPI Ears: PRESENT: other - no visual/hearing changes Cardiovascular: PRESENT: other - no chest pains/cough Gastrointestinal: PRESENT: as per HPI, abdominal pain, nausea Genitourinary: PRESENT: other - no dysuria Neurological: PRESENT: other - no seizures Physical Exam Vital Signs: Temp Pulse Resp BP Pulse Ox 98.4 F 102 H 16 140/71 H 92 03/04/18 18:24 03/04/18 18:24 03/04/18 18:24 03/04/18 18:24 03/04/18 18:24 Intake & Output 03/03/18 03/04/18 03/05/18 06:59 06:59 06:59 Weight 47.1 kg General appearance: PRESENT: mild distress Head exam: PRESENT: atraumatic Eye exam: PRESENT: conjunctiva pink Mouth exam: PRESENT: dry mucosa Neck exam: PRESENT: full ROM Respiratory exam: PRESENT: clear to auscultation sonya Cardiovascular exam: PRESENT: tachycardia Pulses: PRESENT: normal radial pulses Vascular exam: PRESENT: normal capillary refill GI/Abdominal exam: PRESENT: soft, tenderness - RUQ Rectal exam: PRESENT: deferred Neurological exam: PRESENT: alert, oriented to person, oriented to place, oriented to time, oriented to situation Psychiatric exam: PRESENT: anxious Skin exam: PRESENT: normal color, warm Results Laboratory Results: 03/04/18 20:00 03/04/18 20:00 03/04/18 03/04/18 20:00 20:00 WBC 9.1 RBC 4.67 Hgb 13.7 Hct 40.2 MCV 86 MCH 29.3 MCHC 34.0 RDW 14.5 H Plt Count 192 Seg Neutrophils % 84.3 H Lymphocytes % 6.9 L Monocytes % 8.0 Eosinophils % 0.6 Basophils % 0.2 Absolute Neutrophils 7.6 Absolute Lymphocytes 0.6 Absolute Monocytes 0.7 Absolute Eosinophils 0.1 Absolute Basophils 0.0 Sodium 141.7 Potassium 3.6 Chloride 104 Carbon Dioxide 21 L Anion Gap 17 BUN 32 H Creatinine 0.98 Est GFR ( Amer) > 60 Est GFR (Non-Af Amer) 54 L Glucose 120 H Calcium 10.2 Total Bilirubin 0.9 AST 19 ALT 22 Alkaline Phosphatase 88 Total Protein 7.3 Albumin 4.1 Lipase 67.3 12/11/18 20:00 Troponin I < 0.012 Impressions: Abdomen Ultrasound 03/04/18 19:12 IMPRESSION: GALLSTONES AND SLUDGE. MILD FATTY INFILTRATION OF THE LIVER. Assessment & Plan - Diagnosis (1) Cholelithiasis and acute cholecystitis without obstruction Is this a current diagnosis for this admission?: Yes - Time Time Spent: 30 to 50 Minutes - Inpatient Certification Based on my medical assessment, after consideration of the patient's comorbidities, presenting symptoms, or acuity I expect that the services needed warrant INPATIENT care.: Yes I certify that my determination is in accordance with my understanding of Medicare's requirements for reasonable and necessary INPATIENT services [42 CFR 412.3e].: Yes Medical Necessity: Need For IV Fluids, Need for Pain Control, Need for IV Antibiotics, Need for Surgery - Plan Summary Plan Summary: Bowel rest Hydrate IV antibiotics For lap olga
[2018-03-04] MEDS ORDERED: ONDANSETRON HCL INJ/PF 4 MG/2 ML SDV IV PRN (21:42)
[2018-03-04] MEDS ORDERED: IPRATROPIUM/ALBUTEROL 0.5-2.5 MG/3 ML AMPUL NEB PRN (21:42)
[2018-03-04] MEDS ORDERED: DEXTROSE 5%-1/2 NORMAL SALINE 1,000 ML IV PRN (21:42)
[2018-03-04] MEDS ORDERED: ACETAMINOPHEN 325 MG TABLET PO PRN (21:42)
[2018-03-04] MEDS: HYDROMORPHONE HCL INJ/PF 2 MG/ML AMPULE IV PRN (22:26)
[2018-03-04] MEDS ORDERED: CEFTRIAXONE 1 GM/D5W RTU 1 GM/50 ML RTUPB IV ONE (23:00)
[2018-03-04] MEDS ORDERED: ZOLPIDEM TARTRATE 5 MG TABLET PO ONE (23:00)
--- NOTE | 2018-03-04 23:38 | EKG REPORT ---
SEVERITY:- OTHERWISE NORMAL ECG - SINUS TACHYCARDIA BORDERLINE RIGHT AXIS DEVIATION : Confirmed by: Kristina Ferreira MD 04-Mar-2018 23:37:36
[2018-03-05] MEDS: PANTOPRAZOLE SODIUM 40 MG VIAL IV SCH ×2 (00:14→10:26)
[2018-03-05] MEDS ORDERED: CEFTRIAXONE 1 GM/D5W RTU 1 GM/50 ML RTUPB IV ONE (00:23)
[2018-03-05 01:18] LABS: APPEARANCE,URINE SLIGHTLY-CLOUDY; BILIRUBIN,URINE NEGATIVE (NEGATIVE); COLOR,URINE YELLOW; GLUCOSE, URINE NEGATIVE (NEGATIVE); KETONES,URINE TRACE mg/dL (NEGATIVE); LEUKOCYTE ESTERASE,URINE TRACE (NEGATIVE); NITRITE,URINE NEGATIVE (NEGATIVE); PROTEIN,URINE NEGATIVE (NEGATIVE); URINE SPECIFIC GRAVITY 1.016; UROBILINOGEN,URINE NEGATIVE mg/dL (<2.0)
[2018-03-05 05:56] LABS: HEMATOCRIT 32.8 % (36.0-47.0); MEAN CORPUSCULAR HEMOGLOBIN 29.2 pg (27.0-33.4); MEAN CORPUSCULAR VOLUME 86 fl (80-97); PLATELET COUNT 153 10^3/uL (150-450); RED BLOOD COUNT 3.82 10^6/uL (3.72-5.28); RED CELL DISTRIBUTION WIDTH 14.1 % (11.5-14.0); WHITE BLOOD COUNT 7.8 10^3/uL (4.0-10.5)
[2018-03-05 05:59] LABS: HEMOGLOBIN 11.2 g/dL (12.0-15.5)
[2018-03-05 06:11] LABS: ALANINE AMINOTRANSFERASE 29 U/L (9-52); ALBUMIN 2.9 g/dL (3.5-5.0); ALKALINE PHOSPHATASE 70 U/L (38-126); ANION GAP 12 (5-19); ASPARTATE AMINO TRANSFERASE 29 U/L (14-36); BILIRUBIN,DIRECT 0.5 mg/dL (0.0-0.4); BILIRUBIN,TOTAL 0.9 mg/dL (0.2-1.3); BLOOD UREA NITROGEN 27 mg/dL (7-20); CALCIUM 8.5 mg/dL (8.4-10.2); CARBON DIOXIDE 23 mmol/L (22-30); CHLORIDE 107 mmol/L (98-107); GLUCOSE 174 mg/dL (75-110); SODIUM 141.8 mmol/L (137-145); TOTAL PROTEIN 5.5 g/dL (6.3-8.2)
[2018-03-05 07:02] LABS: LIPASE 3842.3 U/L (23-300)
[2018-03-05 07:03] LABS: POTASSIUM 3.1 mmol/L (3.6-5.0)
[2018-03-05] MEDS ORDERED: POTASSI CL 20 MEQ/D5-1/2NS 1L 1,000 ML IV PRN (07:50)
--- NOTE | 2018-03-05 09:00 | RADIOLOGY REPORT (SQ) ---
EXAM DESCRIPTION: CT ABD/PELVIS WITH IV ONLY COMPLETED DATE/TIME: 03/05/2018 8:40 am REASON FOR STUDY: abd pain COMPARISON: CT abdomen pelvis, 02/21/2017 TECHNIQUE: CT scan of the abdomen and pelvis performed using helical scanning technique with dynamic intravenous contrast injection. No oral contrast. Images reviewed with lung, soft tissue, and bone windows. Reconstructed coronal and sagittal MPR images reviewed. Delayed images for evaluation of the urinary system also acquired. All images stored on PACS. All CT scanners at this facility use dose modulation, iterative reconstruction, and/or weight based d osing when appropriate to reduce radiation dose to as low as reasonably achievable (ALARA). [facility]: Dose Right [facility]: CareDose [facility]: Dose Right [facility]: Teradose 4D [facility]: Effcon MXR CONTRAST TYPE AND DOSE: contrast/concentration: Isovue 350.00 mg/ml; Total Contrast Delivered: 51.0 ml; Total Saline Delivered: 65.0 ml RENAL FUNCTION: GFR > 60. RADIATION DOSE: CT Rad equipment meets quality standard of care and radiation dose reduction techniq ues were employed. CTDIvol: 2.4 - 2.9 mGy. DLP: 268 mGy-cm.. LIMITATIONS: None. FINDINGS: LOWER CHEST: Bibasilar heterogeneous opacity and consolidation. Three-vessel coronary art lacy calcifications. LIVER: Normal size. No masses. Mild intrahepatic biliary ductal dilation. SPLEEN: Normal size. No focal lesions. PANCREAS: No masses. No significant calcifications. No adjacent inflammation or peripancreatic fluid collections. Prominence of the pancreatic duct. GALLBLADDER: Very distended gallbladder containing small gallstones. The common bile duct is dilated to the ampulla. There appears to be a 1.2 cm high attenuation mass at the ampulla which is new or e nlarged compared to prior examination (series 2, image 41). ADRENAL GLANDS: No significant masses or asymmetry. RIGHT KIDNEY AND URETER: No solid masses. No significant calcifications. No hydronephrosis or hyd roureter. LEFT KIDNEY AND URETER: No solid masses. No significant calcifications. No hydronephrosis or hydr oureter. AORTA AND VESSELS: Extensive mixed calcific atherosclerosis. 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 RETROPERITONEUM: No retroperitoneal adenopathy, hemorrhage or masses. BOWEL AND PERITONEAL CAVITY: No masses or inflammatory changes. No free fluid or peritoneal masses. APPENDIX: Not visualized. PELVIS: No mass. No free fluid. Normal bladder. ABDOMINAL WALL: No masses. No hernias. BONES: No significant or acute findings. OTHER: No other significant finding. IMPRESSION: 1. Bibasilar heterogeneous airspace opacity and consolidation concerning for infection or aspiration. 2. Distended gallbladder containing gallstones with intrahepatic and common bile duct dilatation to the ampulla. There appears to be a 1.2 cm high attenuation mass at the ampulla which is new or enlar ged compared to prior examination dated 02/21/2017. Correlate for biochemical evidence of cholestasi s and consider direct endoscopic visualization to further evaluate. 3. 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 TECHNICAL DOCUMENTATION: JOB ID: [id number] Quality ID # [id number]: Final reports with documentation of one or more dose reduction techniques (e.g., Au tomated exposure control, adjustment of the mA and/or kV according to patient size, use of iterative reconstruction technique) 2010 [employer]- All Rights Reserved Reading location - IP/workstation name: [email or web address]
--- NOTE | 2018-03-05 09:05 | PDOC H&P ---
History of Present Illness Admission Date/PCP: 03/04/18 21:46 DANIELLE MCHUGH MD Patient complains of: Abdominal pain History of Present Illness: LOUISE ZHOU is a 87 year old female This is a 87-year-old female with a significant history of the hypertension's hyperlipidemia history of the neurofibromatosis currently following Dr. barkley and history of the coronary artery disease with RCA stent currently follow with the Dr. Zuluaga and also a history of the splenic artery aneurysm currently following with Dr. Porter in the [place] and the multiple other comorbidity came to the emergency department with a complaining of right upper quadrant epigastric pain started couple of days getting more worse also feeling some nausea In the emergency department initial ultrasound shows the cholelithiasis without cholecystitis and seen by the general surgery and suggest a gallbladder surgery When I saw the patient's patient to feeling better but the patient's lipase go up to 3000 mostly suggesting the acute pancreatitis the AST and ALT normal and discussed with the general surgery and reevaluate the patient Patient is denied any chest pain denied any shortness of the breath Patient have extensive history of the aneurysm of the splenic artery seen the vascular surgeon in [place] and suggest no need for any surgical evaluations following a 1 year Past Medical History Cardiac Medical History: Reports: Coronary Artery Disease, Myocardial Infarction - non stemi with x2 stent placements, Hyperlipidema, Hypertension Pulmonary Medical History: Denies: Asthma, Bronchitis, Chronic Obstructive Pulmonary Disease (COPD), Pneumonia, Tuberculosis Neurological Medical History: Reports: Ischemic CVA Denies: Seizures Malignancy Medical History: Reports: Breast Cancer GI Medical History: Reports: Gastroesophageal Reflux Disease Musculoskeltal Medical History: Reports: Arthritis - OSTEOARTHRITIS Hematology: Denies: Anemia Past Surgical History Past Surgical History: Reports: Cardiac Catheterization, Coronary Stent, Mastectomy, Orthopedic Surgery Social History Lives with: Family Smoking Status: Never Smoker Frequency of Alcohol Use: Rare Hx Recreational Drug Use: No Hx Prescription Drug Abuse: No Family History Family History: Reviewed & Not Pertinent, Hypertension Parental Family History Reviewed: Yes Children Family History Reviewed: Yes Sibling(s) Family History Reviewed.: Yes Medication/Allergy Home Medications: Atorvastatin Calcium [Lipitor 80 mg Tablet] 80 mg PO QHS 07/18/13 Metoprolol Tartrate [Lopressor 25 mg Tablet] 25 mg PO Q12 07/18/13 Zolpidem Tartrate [Ambien 10 mg Tablet] 10 mg PO QHS 07/18/13 Losartan Potassium [Cozaar 50 mg Tablet] 50 mg PO Q12 #60 tablet 07/22/13 Amlodipine Besylate 10 mg PO DAILY 10/09/16 Hydrochlorothiazide 12.5 mg PO DAILY 10/09/16 Hydroxyzine HCl [Atarax 25 mg Tablet] 25 mg PO BIDP PRN 03/04/18 Meloxicam [Mobic] 7.5 mg PO DAILY 03/04/18 Omeprazole 20 mg PO DAILY 03/04/18 Sertraline HCl [Zoloft 50 mg Tablet] 50 mg PO DAILY 03/04/18 Allergies/Adverse Reactions: No Known Allergies Allergy (Verified 01/05/17 09:44) Review of Systems Constitutional: ABSENT: chills, fever(s), headache(s), weight gain, weight loss Eyes: ABSENT: visual disturbances Ears: ABSENT: hearing changes Cardiovascular: ABSENT: chest pain, dyspnea on exertion, edema, orthropnea, palpitations Respiratory: ABSENT: cough, hemoptysis Gastrointestinal: PRESENT: abdominal pain, nausea. ABSENT: constipation, diarrhea, hematemesis, hematochezia, vomiting Genitourinary: ABSENT: dysuria, hematuria Musculoskeletal: ABSENT: joint swelling Integumentary: ABSENT: rash, wounds Neurological: ABSENT: abnormal gait, abnormal speech, confusion, dizziness, focal weakness, syncope Psychiatric: ABSENT: anxiety, depression, homidical ideation, suicidal ideation Endocrine: ABSENT: cold intolerance, heat intolerance, menstrual abnormalities, polydipsia, polyuria Hematologic/Lymphatic: ABSENT: easy bleeding, easy bruising, lymphadenopathy Physical Exam Vital Signs: Temp Pulse Resp BP Pulse Ox 97.6 F 83 16 122/46 L 93 03/05/18 07:46 03/05/18 07:46 03/05/18 07:46 03/05/18 07:46 03/05/18 07:46 Intake & Output 03/04/18 03/05/18 03/06/18 06:59 06:59 06:59 Intake Total 150 Output Total 300 Balance -150 Weight 48.2 kg General appearance: PRESENT: no acute distress, well-developed, well-nourished Head exam: PRESENT: atraumatic, normocephalic Eye exam: PRESENT: conjunctiva pink, EOMI, PERRLA. ABSENT: scleral icterus Ear exam: PRESENT: normal external ear exam Mouth exam: PRESENT: moist, tongue midline Neck exam: PRESENT: full ROM. ABSENT: carotid bruit, JVD, lymphadenopathy, thyromegaly Respiratory exam: PRESENT: clear to auscultation sonya Cardiovascular exam: PRESENT: RRR. ABSENT: diastolic murmur, rubs, systolic murmur Pulses: PRESENT: normal dorsalis pedis pul, +2 pedal pulses bilateral Vascular exam: PRESENT: normal capillary refill GI/Abdominal exam: PRESENT: normal bowel sounds, soft, tenderness. ABSENT: distended, guarding, mass, organolmegaly, rebound Rectal exam: PRESENT: deferred Extremities exam: ABSENT: pedal edema Neurological exam: PRESENT: alert, awake, oriented to person, oriented to place , oriented to time, oriented to situation, CN II-XII grossly intact. ABSENT: motor sensory deficit Psychiatric exam: PRESENT: appropriate affect, normal mood. ABSENT: homicidal ideation, suicidal ideation Skin exam: PRESENT: dry, intact, warm. ABSENT: cyanosis, rash Results Laboratory Results: 03/05/18 05:12 03/05/18 05:12 03/05/18 03/05/18 03/05/18 00:44 05:12 05:12 WBC 7.8 RBC 3.82 Hgb 11.2 L D Hct 32.8 L MCV 86 MCH 29.2 MCHC 34.0 RDW 14.1 H Plt Count 153 Sodium 141.8 Potassium 3.1 L Chloride 107 Carbon Dioxide 23 Anion Gap 12 BUN 27 H Creatinine 0.83 Est GFR ( Amer) > 60 Est GFR (Non-Af Amer) > 60 Glucose 174 H Calcium 8.5 Magnesium 1.9 Total Bilirubin 0.9 AST 29 ALT 29 Alkaline Phosphatase 70 Total Protein 5.5 L Albumin 2.9 L Lipase 3842.3 H Urine Color YELLOW Urine Appearance SLIGHTLY-CLOUDY Urine pH 5.0 Ur Specific [place] 1.016 Urine Protein NEGATIVE Urine Glucose (UA) NEGATIVE Urine Ketones TRACE H Urine Blood SMALL H Urine Nitrite NEGATIVE Ur Leukocyte Esterase TRACE H Urine WBC (Auto) 6 Urine RBC (Auto) 4 Impressions: Abdomen Ultrasound 03/04/18 19:12 IMPRESSION: GALLSTONES AND SLUDGE. MILD FATTY INFILTRATION OF THE LIVER. Assessment & Plan - Diagnosis (1) Abdominal pain Qualifiers: Abdominal location: epigastric Qualified Code(s): R10.13 - Epigastric pain Is this a current diagnosis for this admission?: Yes Plan: Most likely from acute pancreatitis and possible gallstones we will keep her n.p.o. patient continues to IV fluid follow with the general surgery and order the CT scan of the abdomen and pelvis (2) Acute pancreatitis Qualifiers: Pancreatitis type: biliary Acute pancreatitis complication: unspecified Qualified Code(s): K85.10 - Biliary acute pancreatitis without necrosis or infection Is this a current diagnosis for this admission?: Yes Plan: Keep the patient n.p.o. and IV fluid and IV antibiotic (3) Coronary artery disease Qualifiers: Coronary Disease-Associated Artery/Lesion type: unspecified vessel or lesion type Associated angina: without angina Is this a current diagnosis for this admission?: Yes Plan: The EKG and consult the cardiology before the surgery (4) Hypertension Qualifiers: Hypertension type: essential hypertension Qualified Code(s): I10 - Essential (primary) hypertension Is this a current diagnosis for this admission?: Yes Plan: continue of current medication (5) Neurofibromatosis Is this a current diagnosis for this admission?: Yes (6) Splenic artery aneurysm Is this a current diagnosis for this admission?: Yes Plan: Currently all stable will get the CT scan of the abdomen pelvis and patient is currently following the vascular surgery at [place] (7) Cholelithiasis and acute cholecystitis without obstruction Is this a current diagnosis for this admission?: Yes Plan: With the general surgery - Time Time Spent: 30 to 50 Minutes Medications reviewed and adjusted accordingly: Yes Anticipated discharge: Home Within: Other - Inpatient Certification Based on my medical assessment, after consideration of the patient's comorbidities, presenting symptoms, or acuity I expect that the services needed warrant INPATIENT care.: Yes I certify that my determination is in accordance with my understanding of Medicare's requirements for reasonable and necessary INPATIENT services [42 CFR 412.3e].: Yes Medical Necessity: Significant Comorbidiites Make Outpatient Treatment Too Risky , Need For IV Fluids, Need for Nebulizer Therapy and Monitoring of Response, Need for IV Antibiotics Post Hospital Care: D/C [facility] Documentation - Plan Summary Plan Summary: Admit the patient in IMCU Keep her n.p.o. Continues IV fluid Replace the potassium Discussed with the general surgery Discussed with the family
[2018-03-05] MEDS: POTASSI CL 20 MEQ/50 ML RIDER 20 MEQ/50 ML RTUPB IV SCH ×2 (09:12→10:27)
[2018-03-05] MEDS ORDERED: ENOXAPARIN SODIUM INJ 40 MG/0.4 ML DISP.SYRIN SUBCUT SCH (10:00)
[2018-03-05] MEDS ORDERED: ENOXAPARIN SODIUM INJ 30 MG/0.3 ML DISP.SYRIN SUBCUT SCH (10:00)
[2018-03-05] MEDS ORDERED: SERTRALINE HCL 50 MG TABLET PO SCH (10:00)
[2018-03-05] MEDS ORDERED: LOSARTAN POTASSIUM 50 MG TABLET PO SCH (10:00)
[2018-03-05] MEDS ORDERED: CEFEPIME 1 GM/D5W RTU 1 GM/50 ML RTUPB IV SCH (10:00)
[2018-03-05] MEDS ORDERED: METOPROLOL TARTRATE 25 MG TABLET PO SCH (10:00)
[2018-03-05] MEDS ORDERED: AMLODIPINE BESYLATE 10 MG TABLET PO SCH (10:00)
--- NOTE | 2018-03-05 12:09 | PDOC TRANSFER SUMMARY ---
General Admission Date/PCP: 03/04/18 21:46 DANIELLE MCHUGH MD Admission Date: 03/04/18 Transfer Date: 03/05/18 Resuscitation Status: Full Code - Transfer Diagnosis (1) Abdominal pain Is this a current diagnosis for this admission?: Yes (2) Acute pancreatitis Is this a current diagnosis for this admission?: Yes (3) Coronary artery disease Is this a current diagnosis for this admission?: Yes (4) Hypertension Is this a current diagnosis for this admission?: Yes (5) Neurofibromatosis Is this a current diagnosis for this admission?: Yes (6) Splenic artery aneurysm Is this a current diagnosis for this admission?: Yes (7) Cholelithiasis and acute cholecystitis without obstruction Is this a current diagnosis for this admission?: Yes - Transfer Medications Home Medications: Atorvastatin Calcium [Lipitor 80 mg Tablet] 80 mg PO QHS 07/18/13 Metoprolol Tartrate [Lopressor 25 mg Tablet] 25 mg PO Q12 07/18/13 Zolpidem Tartrate [Ambien 10 mg Tablet] 10 mg PO QHS 07/18/13 Amlodipine Besylate 10 mg PO DAILY 10/09/16 Hydrochlorothiazide 12.5 mg PO DAILY 10/09/16 Hydroxyzine HCl [Atarax 25 mg Tablet] 25 mg PO BIDP PRN 03/04/18 Meloxicam [Mobic] 7.5 mg PO DAILY 03/04/18 Omeprazole 20 mg PO DAILY 03/04/18 Sertraline HCl [Zoloft 50 mg Tablet] 50 mg PO DAILY 03/04/18 Transfer Medications: Current Medications Acetaminophen (Tylenol 325 Mg Tablet) 650 mg PO Q4HP PRN PRN Reason: FOR PAIN OR TEMP Stop: 04/03/18 21:41 Albuterol/Ipratropium (Duoneb 3 Ml Ampul) 3 ml NEB RTQ6HP PRN PRN Reason: SHORTNESS OF BREATH Stop: 04/03/18 21:41 Amlodipine Besylate (Norvasc 10 Mg Tablet) 10 mg PO DAILY [facility] Stop: 04/04/18 09:59 Enoxaparin Sodium (Lovenox Inj 30 Mg/0.3 Ml Disp.Syrin) 30 mg SUBCUT DAILY [facility] Stop: 04/04/18 09:59 Last Admin: 03/05/18 10:35 Dose: 30 mg Hydromorphone HCl (Dilaudid Inj/Pf 2 Mg/Ml Ampule) 1 mg IV Q4HP PRN PRN Reason: FOR PAIN Stop: 03/11/18 21:45 Last Admin: 03/04/18 22:26 Dose: 1 mg Potassium Chloride/Water (Potassium Chloride Raoul 20 Meq/50 Ml) 20 meq in 50 mls @ 25 mls/hr IV Q2H [facility] Stop: 03/05/18 12:29 Last Admin: 03/05/18 10:27 Dose: 25 ml/hr, 25 mls/hr Potassium Chloride/Dextrose/Sod Cl (D5-1/2ns 1000 Ml/Kcl 20 Meq Premix Bag) 1, 000 mls @ 100 mls/hr IV CONTINUOUS PRN PRN Reason: THIS MED IS NOT "PRN" Stop: 04/04/18 07:49 Cefepime HCl (Maxipime Rtu 1 Gm/D5w 50 Ml Premix Bag) 1 gm in 50 mls @ 100 mls/ hr IV Q12 [facility] Stop: 03/12/18 09:59 Last Admin: 03/05/18 10:37 Dose: 100 ml/hr, 100 mls/hr Losartan Potassium (Cozaar 50 Mg Tablet) 50 mg PO Q12 [facility] Stop: 04/04/18 09:59 Last Admin: 03/05/18 10:26 Dose: 50 mg Metoprolol Tartrate (Lopressor 25 Mg Tablet) 25 mg PO Q12 [facility] Stop: 04/04/18 09:59 Last Admin: 03/05/18 10:26 Dose: 25 mg Ondansetron HCl (Zofran Inj/Pf 4 Mg/2 Ml Sdv) 4 mg IV Q6HP PRN PRN Reason: FOR NAUSEA/VOMITING Stop: 04/03/18 21:41 Pantoprazole Sodium (Protonix Iv Inj 40 Mg Vial) 40 mg IV Q12 [facility] Stop: 03/07/18 21:59 Last Admin: 03/05/18 10:26 Dose: 40 mg Sertraline HCl (Zoloft 50 Mg Tablet) 50 mg PO DAILY [facility] Stop: 04/04/18 09:59 Last Admin: 03/05/18 10:26 Dose: 50 mg Zolpidem Tartrate (Ambien 5 Mg Tablet) 10 mg PO QHS [facility] Stop: 04/04/18 21:59 - Allergies Allergies/Adverse Reactions: No Known Allergies Allergy (Verified 01/05/17 09:44) Hospital Course Hospital Course: This is a 79-year-old female with a history of hypertension coronary artery disease status post stent placement history of neurofibromatosis hyperlipidemia splenic artery aneurysm came to the emergency department complaining of epigastric right upper quadrant pain and the patient was admitting in the hospital keep her n.p.o. and start on IV antibiotic seen by general surgery and possible schedule for the lap olga today His lipase was completely normal yesterday today's patient's lipase was 3000 range and patient had a CT scan of the abdomen pelvis was done with source the patient's for possible common bile duct stone versus the mass and patients need a ERCP Discussed with the general surgery we do not have no availability of the ERCP here patient's transfer at this point to the tertiary center for further evaluations keep patient n.p.o. and IV antibiotic Discussed with the family and the patient Physical Exam Vital Signs: Temp Pulse Resp BP Pulse Ox 97.6 F 83 16 82/50 L 93 03/05/18 07:46 03/05/18 07:46 03/05/18 07:46 03/05/18 11:33 03/05/18 07:46 Intake & Output 03/04/18 03/05/18 03/06/18 06:59 06:59 06:59 Intake Total 150 31 Output Total 300 Balance -150 31 Weight 48.2 kg General appearance: PRESENT: no acute distress, well-developed, well-nourished Head exam: PRESENT: atraumatic, normocephalic Eye exam: PRESENT: conjunctiva pink, EOMI, PERRLA. ABSENT: scleral icterus Ear exam: PRESENT: normal external ear exam Mouth exam: PRESENT: moist, tongue midline Neck exam: ABSENT: carotid bruit, JVD, lymphadenopathy, thyromegaly Respiratory exam: PRESENT: clear to auscultation sonya. ABSENT: rales, rhonchi, wheezes Cardiovascular exam: PRESENT: RRR. ABSENT: diastolic murmur, rubs, systolic murmur Pulses: PRESENT: normal dorsalis pedis pul Vascular exam: PRESENT: normal capillary refill GI/Abdominal exam: PRESENT: normal bowel sounds, soft, tenderness. ABSENT: distended, guarding, mass, organolmegaly, rebound Rectal exam: PRESENT: deferred Extremities exam: PRESENT: full ROM. ABSENT: calf tenderness, clubbing, pedal edema Neurological exam: PRESENT: alert, awake, oriented to person, oriented to place , oriented to time, oriented to situation, CN II-XII grossly intact. ABSENT: motor sensory deficit Psychiatric exam: PRESENT: appropriate affect, normal mood. ABSENT: homicidal ideation, suicidal ideation Skin exam: PRESENT: dry, intact, warm. ABSENT: cyanosis, rash Results Laboratory Results: 03/05/18 05:12 03/05/18 05:12 03/05/18 03/05/18 03/05/18 00:44 05:12 05:12 WBC 7.8 RBC 3.82 Hgb 11.2 L D Hct 32.8 L MCV 86 MCH 29.2 MCHC 34.0 RDW 14.1 H Plt Count 153 Sodium 141.8 Potassium 3.1 L Chloride 107 Carbon Dioxide 23 Anion Gap 12 BUN 27 H Creatinine 0.83 Est GFR ( Amer) > 60 Est GFR (Non-Af Amer) > 60 Glucose 174 H Calcium 8.5 Magnesium 1.9 Total Bilirubin 0.9 AST 29 ALT 29 Alkaline Phosphatase 70 Total Protein 5.5 L Albumin 2.9 L Lipase 3842.3 H Urine Color YELLOW Urine Appearance SLIGHTLY-CLOUDY Urine pH 5.0 Ur Specific [place] 1.016 Urine Protein NEGATIVE Urine Glucose (UA) NEGATIVE Urine Ketones TRACE H Urine Blood SMALL H Urine Nitrite NEGATIVE Ur Leukocyte Esterase TRACE H Urine WBC (Auto) 6 Urine RBC (Auto) 4 Impressions: Abdomen/Pelvis CT 03/04/18 00:00 IMPRESSION: 1. Bibasilar heterogeneous airspace opacity and consolidation concerning for infection or aspiration. 2. Distended gallbladder containing gallstones with intrahepatic and common bile duct dilatation to the ampulla. There appears to be a 1.2 cm high attenuation mass at the ampulla which is new or enlarged compared to prior examination dated 02/21/2017. Correlate for biochemical evidence of cholestasis and consider direct endoscopic visualization to further evaluate. 3. 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 Abdomen Ultrasound 03/04/18 19:12 IMPRESSION: GALLSTONES AND SLUDGE. MILD FATTY INFILTRATION OF THE LIVER. Plan Time Spent: Greater than 30 Minutes - Patient is currently stable on transfer
--- NOTE | 2018-03-05 12:32 | PDOC PROGRESS REPORT ---
Subjective Progress Note for:: 03/05/18 Subjective:: This is an 87-year-old female admitted with abdominal pain, situated in the right upper quadrant. The patient was found to have a distended gallbladder and evidence of gallstones and sludge on ultrasound. The morning after admission, the patient's lipase was found to be elevated at 3000. Further testing was performed, including CT scan. This morning, the patient reports epigastric and right upper quadrant abdominal pain and nausea. She denies vomiting. She denies chest pain, shortness of breath, fevers, chills, blurry vision, headache. She does report malaise and fatigue. Reason For Visit: ABDOMINAL PAIN, cholecystitis Physical Exam Vital Signs: Temp Pulse Resp BP Pulse Ox 97.6 F 83 16 82/50 L 93 03/05/18 07:46 03/05/18 07:46 03/05/18 07:46 03/05/18 11:33 03/05/18 07:46 Intake & Output 03/04/18 03/05/18 03/06/18 06:59 06:59 06:59 Intake Total 150 31 Output Total 300 Balance -150 31 Weight 48.2 kg General appearance: PRESENT: no acute distress Head exam: PRESENT: atraumatic, normocephalic Eye exam: PRESENT: EOMI, PERRLA. ABSENT: scleral icterus Mouth exam: PRESENT: moist, neck supple Neck exam: ABSENT: meningismus, tenderness, thyromegaly, tracheal deviation Respiratory exam: PRESENT: clear to auscultation sonya. ABSENT: chest wall tenderness Cardiovascular exam: PRESENT: irregular rhythm Pulses: PRESENT: normal radial pulses Vascular exam: PRESENT: normal capillary refill. ABSENT: pallor GI/Abdominal exam: PRESENT: soft, tenderness - Epigastric/right upper quadrant. ABSENT: rebound, rigid Extremities exam: ABSENT: clubbing Neurological exam: PRESENT: alert, awake, oriented to person, oriented to place , oriented to time, oriented to situation, CN II-XII grossly intact. ABSENT: motor sensory deficit Psychiatric exam: ABSENT: agitated, anxious, depressed Focused psych exam: ABSENT: delusional Skin exam: ABSENT: cyanosis, erythema, jaundice Results Laboratory Results: 03/05/18 05:12 03/05/18 05:12 03/05/18 03/05/18 03/05/18 00:44 05:12 05:12 WBC 7.8 RBC 3.82 Hgb 11.2 L D Hct 32.8 L MCV 86 MCH 29.2 MCHC 34.0 RDW 14.1 H Plt Count 153 Sodium 141.8 Potassium 3.1 L Chloride 107 Carbon Dioxide 23 Anion Gap 12 BUN 27 H Creatinine 0.83 Est GFR ( Amer) > 60 Est GFR (Non-Af Amer) > 60 Glucose 174 H Calcium 8.5 Magnesium 1.9 Total Bilirubin 0.9 AST 29 ALT 29 Alkaline Phosphatase 70 Total Protein 5.5 L Albumin 2.9 L Lipase 3842.3 H Urine Color YELLOW Urine Appearance SLIGHTLY-CLOUDY Urine pH 5.0 Ur Specific [place] 1.016 Urine Protein NEGATIVE Urine Glucose (UA) NEGATIVE Urine Ketones TRACE H Urine Blood SMALL H Urine Nitrite NEGATIVE Ur Leukocyte Esterase TRACE H Urine WBC (Auto) 6 Urine RBC (Auto) 4 Impressions: Abdomen/Pelvis CT 03/04/18 00:00 IMPRESSION: 1. Bibasilar heterogeneous airspace opacity and consolidation concerning for infection or aspiration. 2. Distended gallbladder containing gallstones with intrahepatic and common bile duct dilatation to the ampulla. There appears to be a 1.2 cm high attenuation mass at the ampulla which is new or enlarged compared to prior examination dated 02/21/2017. Correlate for biochemical evidence of cholestasis and consider direct endoscopic visualization to further evaluate. 3. 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 Abdomen Ultrasound 03/04/18 19:12 IMPRESSION: GALLSTONES AND SLUDGE. MILD FATTY INFILTRATION OF THE LIVER. Assessment & Plan - Diagnosis (1) Bile duct calculus Qualifiers: Cholecystitis presence: with cholecystitis Cholecystitis acuity: acute Biliary obstruction: with biliary obstruction Qualified Code(s): K80.43 - Calculus of bile duct with acute cholecystitis with obstruction Is this a current diagnosis for this admission?: Yes (2) Cholecystitis Is this a current diagnosis for this admission?: Yes (3) Acute pancreatitis Qualifiers: Pancreatitis type: biliary Acute pancreatitis complication: unspecified Qualified Code(s): K85.10 - Biliary acute pancreatitis without necrosis or infection Is this a current diagnosis for this admission?: Yes - Plan Summary Plan Summary: This is an 87-year-old female with CT evidence of a stone in the distal common bile duct, biliary ductal and pancreatic ductal dilatation, pancreatitis, and cholecystitis. ERCP capabilities are not available at this institution. I have contacted [facility], who also does not have ERCP capability. I have contacted [facility], who has agreed to accept the patient. Continue antibiotics. Continue pain control. Continue IV fluids.
[2018-03-05 15:30] LABS: ANION GAP 9 (5-19); BLOOD UREA NITROGEN 26 mg/dL (7-20); CALCIUM 8.5 mg/dL (8.4-10.2); CARBON DIOXIDE 22 mmol/L (22-30); CHLORIDE 109 mmol/L (98-107); GLUCOSE 119 mg/dL (75-110); POTASSIUM 3.8 mmol/L (3.6-5.0)
[2018-03-05] MEDS: HYDROMORPHONE HCL INJ/PF 2 MG/ML AMPULE IV PRN ×2 (17:03→18:27)
[2018-03-05 17:29] VITALS: BP 114/45
[2018-03-05] MEDS ORDERED: HYDROMORPHONE HCL INJ/PF 2 MG/ML AMPULE ONE (18:25)
[2018-03-05] MEDS ORDERED: HYDROMORPHONE HCL INJ/PF 2 MG/ML AMPULE IV ONE (19:00)
--- NOTE | 2018-03-05 21:07 | EKG REPORT ---
SEVERITY:- ABNORMAL ECG - ATRIAL FIBRILLATION RIGHT AXIS DEVIATION NONSPECIFIC REPOL ABNORMALITY, DIFFUSE LEADS BORDERLINE PROLONGED QT INTERVAL : Confirmed by: Kristina Ferreira MD 05-Mar-2018 21:06:12
[2018-03-05] MEDS ORDERED: ZOLPIDEM TARTRATE 5 MG TABLET PO SCH (22:00)
[2018-03-05] MEDS ORDERED: CEFTRIAXONE 1 GM/D5W RTU 1 GM/50 ML RTUPB IV SCH (22:00)
[2018-03-05] MEDS ORDERED: CEFTRIAXONE SODIUM 1,000 MG in DEXTROSE 5%-WATER 50 ML IV SCH (22:00)
== END 2018-03-05 21:02 | disposition short-term general hospital (02) | DRG 439 ==
LOC: ER 18:17 → EH 21:46 → 3S 22:53
PROVIDERS: ADMIT Family Medicine; ATTEND Family Medicine
PROC: 3E0F73Z Introduction of Anti-inflammatory into Respiratory Tract, Via Natural or Artificial Opening (ICD-10-PCS; principal; 2018-03-05)
DX: K85.10 Biliary acute pancreatitis without necrosis or infection (principal); K80.00 Calculus of gallbladder with acute cholecystitis without obstruction; I25.10 Atherosclerotic heart disease of native coronary artery without angina pectoris; I10 Essential (primary) hypertension; I72.8 Aneurysm of other specified arteries; E78.00 Pure hypercholesterolemia, unspecified; K21.9 Gastro-esophageal reflux disease without esophagitis; I25.2 Old myocardial infarction; Q85.00 Neurofibromatosis, unspecified; Z79.899 Other long term (current) drug therapy; Z95.5 Presence of coronary angioplasty implant and graft; Z86.73 Personal history of transient ischemic attack (TIA), and cerebral infarction without residual deficits; Z85.3 Personal history of malignant neoplasm of breast; Z90.10 Acquired absence of unspecified breast and nipple; Z83.3 Family history of diabetes mellitus; Z82.49 Family history of ischemic heart disease and other diseases of the circulatory system
CPT/HCPCS: 36415; 74177; 76705; 80048; 80053; 81001; 83690; 83735; 84484; 85025; 85027; 87040; 87086; 93005; 93010; 93306; 96361; 96374; 96375; 96376; 99285; J0692; J0696; J1170; J1650; J2270; J2405; J3480; J7030; J7620; S0164

== ENCOUNTER → 2018-03-19 | Outpatient (CLI) | payer MEDICARE, OTHER ==
--- NOTE | 2018-03-19 13:30 | RADIOLOGY REPORT (SQ) ---
EXAM DESCRIPTION: CHEST PA/LATERAL COMPLETED DATE/TIME: 03/19/2018 1:00 pm REASON FOR STUDY: PNEUMONIA, UNSPECIFIED ORGANISM COMPARISON: Chest films 02/25/2014, 01/22/2016 CT abdomen pelvis 03/05/2018 EXAM PARAMETERS: NUMBER OF VIEWS: two views TECHNIQUE: Digital Frontal and Lateral radiographic views of the chest acquired. RADIATION DOSE: NA LIMITATIONS: none FINDINGS: LUNGS AND PLEURA: Dense consolidation in the medial right lung base, worrisome for pneumon ia. This is similar compared to CT abdomen pelvis 03/05/2018. Left lung well inflated and clear. No right or left pleural effusions or pneumothorax. MEDIASTINUM AND HILAR STRUCTURES: Fullness right hilum, could indicate mass or adenopathy HEART AND VASCULAR STRUCTURES: Heart normal size. No evidence for failure. BONES: No acute findings. HARDWARE: Surgical clips left axilla, post left mastectomy OTHER: No other significant finding. IMPRESSION: Persistent right basilar consolidation worrisome for pneumonia. Fullness right hilum, c ould indicate adenopathy. TECHNICAL DOCUMENTATION: JOB ID: [id number] [employer]- All Rights Reserved Reading location - IP/workstation name: [email or web address]
== END ==
LOC: OD 12:45
PROVIDERS: ATTEND Physician Assistant
DX: J18.9 Pneumonia, unspecified organism (principal)
CPT/HCPCS: 71046

== ENCOUNTER → 2018-03-31 | Outpatient (CLI) | payer MEDICARE, OTHER ==
--- NOTE | 2018-03-31 14:37 | RADIOLOGY REPORT (SQ) ---
EXAM DESCRIPTION: CHEST PA/LATERAL COMPLETED DATE/TIME: 03/31/2018 2:15 pm REASON FOR STUDY: PNEUMONIA COMPARISON: 03/19/2018, 01/22/2016 CT abdomen pelvis 03/05/2018 EXAM PARAMETERS: NUMBER OF VIEWS: two views TECHNIQUE: Digital Frontal and Lateral radiographic views of the chest acquired. RADIATION DOSE: NA LIMITATIONS: none FINDINGS: LUNGS AND PLEURA: Lungs are hyperinflated and hyperlucent from obstructive disease. No fo lakeisha pulmonary infiltrates. No pleural effusion or pneumothorax. MEDIASTINUM AND HILAR STRUCTURES: No masses or contour abnormalities. HEART AND VASCULAR STRUCTURES: Heart normal size. No evidence for failure. Coronary artery stent is seen over the anterior heart border on lateral view BONES: No acute findings. HARDWARE: Surgical clips left axilla post mastectomy OTHER: Peripherally calcified less than 2 cm splenic artery aneurysm unchanged from prior studies. IMPRESSION: Obstructive lung disease. No acute findings TECHNICAL DOCUMENTATION: JOB ID: [id number] [employer]- All Rights Reserved Reading location - IP/workstation name: [email or web address]
== END ==
LOC: OD 14:01
PROVIDERS: ATTEND Family Medicine
DX: J18.9 Pneumonia, unspecified organism (principal); J44.9 Chronic obstructive pulmonary disease, unspecified
CPT/HCPCS: 71046

== ENCOUNTER → 2018-09-23 | Outpatient (CLI) | payer MEDICARE, OTHER ==
[2018-09-23 09:54] LABS: ABSOLUTE EOSINOPHILS # (AUTO) 0.1 10^3/uL (0.0-0.6); ABSOLUTE LYMPHOCYTES (AUTO) 0.4 10^3/uL (0.5-4.7); ABSOLUTE MONOCYTES (AUTO) 0.8 10^3/uL (0.1-1.4); ABSOLUTE NEUT (AUTO) 5.7 10^3/uL (1.7-8.2); BASOPHILS % (AUTO) 0.6 % (0-2); EOSINOPHILS % (AUTO) 0.8 % (0-6); HEMATOCRIT 34.3 % (36.0-47.0); HEMOGLOBIN 11.4 g/dL (12.0-15.5); LYMPHOCYTES % (AUTO) 5.5 % (13-45); MEAN CORPUSCULAR HEMOGLOBIN 27.7 pg (27.0-33.4); MEAN CORPUSCULAR HGB CONC 33.3 g/dL (32.0-36.0); MEAN CORPUSCULAR VOLUME 83 fl (80-97); MONOCYTES % (AUTO) 10.9 % (3-13); PLATELET COUNT 258 10^3/uL (150-450); RED BLOOD COUNT 4.12 10^6/uL (3.72-5.28); RED CELL DISTRIBUTION WIDTH 15.3 % (11.5-14.0); SEGMENTED NEUTROPHILS % (AUTO) 82.2 % (42-78); TOTAL CELLS COUNTED % (AUTO) 100 %; WHITE BLOOD COUNT 6.9 10^3/uL (4.0-10.5)
[2018-09-23 10:19] LABS: ALANINE AMINOTRANSFERASE 20 U/L (9-52); ALBUMIN 3.4 g/dL (3.5-5.0); ALKALINE PHOSPHATASE 126 U/L (38-126); ANION GAP 10 (5-19); ASPARTATE AMINO TRANSFERASE 19 U/L (14-36); BILIRUBIN,DIRECT 0.3 mg/dL (0.0-0.4); BILIRUBIN,TOTAL 0.5 mg/dL (0.2-1.3); BLOOD UREA NITROGEN 29 mg/dL (7-20); CALCIUM 8.6 mg/dL (8.4-10.2); CARBON DIOXIDE 25 mmol/L (22-30); CHLORIDE 104 mmol/L (98-107); GLUCOSE 97 mg/dL (75-110); LIPASE 63.8 U/L (23-300); POTASSIUM 3.7 mmol/L (3.6-5.0); TOTAL PROTEIN 6.3 g/dL (6.3-8.2)
== END ==
LOC: OD 09:19
PROVIDERS: ATTEND Physician Assistant
DX: I10 Essential (primary) hypertension (principal); R10.9 Unspecified abdominal pain
CPT/HCPCS: 36415; 80053; 83690; 85025

== ENCOUNTER → 2019-04-01 | Outpatient (CLI) | payer MEDICARE, OTHER ==
--- NOTE | 2019-04-01 16:49 | RADIOLOGY REPORT (SQ) ---
EXAM DESCRIPTION: CT HEAD WITHOUT COMPLETED DATE/TIME: 04/01/2019 4:37 pm REASON FOR STUDY: W19.XXXA UNSPECIFIED FALL, INITIAL ENCOUNTER, S09.90XA UNSPECIFIED INJURY O S09.90 XA UNSPECIFIED INJURY OF HEAD, INITIAL ENCOUNTER W19.XXXA UNSPECIFIED FALL, INITIAL ENCOUNTER COMPARISON: 07/20/2013. TECHNIQUE: Axial images acquired through the brain without intravenous contrast. Images reviewed wi th bone, brain and subdural windows. Additional sagittal and coronal reconstructions were generated. Images stored on PACS. All CT scanners at this facility use dose modulation, iterative reconstruction, and/or weight based d osing when appropriate to reduce radiation dose to as low as reasonably achievable (ALARA). [facility]: Dose Right [facility]: CareDose [facility]: Dose Right [facility]: Teradose 4D [facility]: Smart APJeT RADIATION DOSE: CT Rad equipment meets quality standard of care and radiation dose reduction techniq ues were employed. CTDIvol: 48.7 mGy. DLP: 979 mGy-cm.mGy. LIMITATIONS: None. FINDINGS: VENTRICLES: Prominent. CEREBRUM: No masses. No hemorrhage. No midline shift. Areas of low density in the white matter mos t likely due to chronic micro-vascular ischemic change. No evidence for acute infarction. CEREBELLUM: No masses. No hemorrhage. No alteration of density. No evidence for acute infarction. EXTRAAXIAL SPACES: Age-related involutional change. No fluid collections. No masses. ORBITS AND GLOBE: No intra- or extraconal masses. Normal contour of globe without masses. CALVARIUM: No fracture. PARANASAL SINUSES: No fluid or mucosal thickening. SOFT TISSUES: No mass or hematoma. OTHER: No other significant finding. IMPRESSION: CHRONIC CHANGES OF ATROPHY AND MICROVASCULAR ISCHEMIA. NO ACUTE PROCESS. EVIDENCE OF ACUTE STROKE: NO. TECHNICAL DOCUMENTATION: JOB ID: [id number] Quality ID # [id number]: Final reports with documentation of one or more dose reduction techniques (e.g., Au tomated exposure control, adjustment of the mA and/or kV according to patient size, use of iterative reconstruction technique) 2010 [employer]- All Rights Reserved Reading location - IP/workstation name: [email or web address]
== END ==
LOC: RAD 16:22
PROVIDERS: ATTEND Family Medicine
DX: S09.90XA Unspecified injury of head, initial encounter (principal); W19.XXXA Unspecified fall, initial encounter
CPT/HCPCS: 70450